=== PATIENT | male | born 1950 | race Caucasian/White ===

== ENCOUNTER → 2016-10-02 | Outpatient (CLI) | payer OTHER, MEDICARE | END | disposition home or self-care (01) | LOC: MRI 08:44 | DX: I61.9 Nontraumatic intracerebral hemorrhage, unspecified (principal) ==

== ENCOUNTER 2016-12-31 09:22 | Inpatient (IN) | payer MEDICARE ==
[~2016-12-31] VITALS: Ht 172.7 cm; Wt 84.1 kg
[~2016-12-31 09:22] MED LIST: PREDNISONE10 MG PO
[2016-12-31 09:36] VITALS: BP 166/116
[2016-12-31] MEDS ORDERED: CARVEDILOL25 MG PO (09:37)
[2016-12-31] MEDS ORDERED: LOSARTAN POTASS50 M1 PO (09:38)
[2016-12-31 10:22] LABS: BASO % 0.2 % (0.0-1.0); EOS % 0.3 % (1.0-4.0); HEMATOCRIT 40.4 % (42.0-52.0); HEMOGLOBIN 13.5 g/dl (14.0-18.0); LYMPH # 1.1 10*3/uL (1.3-4.4); MEAN CELL VOLUME 87.8 fl (80.0-94.0); MEAN CORPUSCULAR HGB 29.3 pg (27.0-31.0); MEAN CORPUSCULAR HGB CONC 33.4 g/dl (33.0-37.0); MEAN PLATELET VOLUME 10.1 fl (9.6-12.3); MONO # 0.4 10*3/uL (0.1-1.0); MONO % 7.1 % (3.0-9.0); NEUT # 4.2 10*3/uL (2.3-7.9); NEUT % 73.1 % (47.0-73.0); PLATELET COUNT AUTOMATED 133 10*3/uL (130-400); RED CELL DISTRI WIDTH 13.1 % (0-14.5); WHITE BLOOD COUNT 5.8 10*3/uL (4.8-10.8)
[2016-12-31 10:38] LABS: BUN 20 mg/dl (7-24); CARBON DIOXIDE 26 mmol/L (21-32); CHLORIDE 103 mmol/L (98-107); EST GLOM FILT AFRICAN AMERICAN > 60 ml/min; GLUCOSE 148 mg/dL (65-99); POTASSIUM 2.7 mmol/L (3.5-5.1); SODIUM 140 mmol/L (136-145); TROPONIN I 0.016 ng/ml (<0.045)
[2016-12-31 13:09] VITALS: BP 189/96
[2016-12-31 14:04] VITALS: BP 189/96
[2016-12-31 14:27] LABS: BILIRUBIN NEGATIVE (NEGATIVE); BLOOD TRACE-INTACT (NEGATIVE); CLARITY CLEAR (CLEAR); COLOR YELLOW (YELLOW); GLUCOSE NEGATIVE (NEGATIVE); KETONE NEGATIVE (NEGATIVE); LEUKO ESTERASE NEGATIVE (NEGATIVE); NITRITE NEGATIVE (NEGATIVE); PROTEIN NEGATIVE (NEGATIVE); SPECIFIC GRAVITY <= 1.005 (1.005-1.030)
[2016-12-31 14:46] LABS: BACTERIA TRACE; EPITHELIAL CELLS 0-2; RBC 0-2 rbc/hpf (0-2); URINE REFLEX COMMENT YES (NO)
[2016-12-31 16:00] VITALS: BP 180/94
[2016-12-31 18:19] LABS: CKMB 5.4 ng/ml (0.5-3.6)
[2016-12-31 20:00] VITALS: BP 137/89
[2017-01-01] VITALS: BP 184/86
[2017-01-01 00:57] LABS: CKMB 3.9 ng/ml (0.5-3.6)
[2017-01-01 06:09] LABS: EOS % 0.2 % (1.0-4.0); HEMATOCRIT 38.4 % (42.0-52.0); HEMOGLOBIN 12.9 g/dl (14.0-18.0); LYMPH # 0.9 10*3/uL (1.3-4.4); LYMPH % 17.5 % (27.0-41.0); MEAN CELL VOLUME 89.7 fl (80.0-94.0); MEAN CORPUSCULAR HGB 30.1 pg (27.0-31.0); MEAN CORPUSCULAR HGB CONC 33.6 g/dl (33.0-37.0); MEAN PLATELET VOLUME 9.7 fl (9.6-12.3); MONO # 0.5 10*3/uL (0.1-1.0); MONO % 8.5 % (3.0-9.0); NEUT # 3.9 10*3/uL (2.3-7.9); NEUT % 73.2 % (47.0-73.0); PLATELET COUNT AUTOMATED 126 10*3/uL (130-400); RED BLOOD COUNT 4.28 10*6/uL (4.50-5.90); RED CELL DISTRI WIDTH 13.1 % (0-14.5); WHITE BLOOD COUNT 5.3 10*3/uL (4.8-10.8)
[2017-01-01 06:21] LABS: CKMB 3.8 ng/ml (0.5-3.6)
[2017-01-01 06:34] LABS: HEMOGLOBIN A1c 6.1 % (4.8-5.6)
[2017-01-01 06:40] LABS: INTERNATIONAL NORM RATIO 1.1 (2.0-3.5); PROTHROMBIN TIME 11.2 SECONDS (9.0-12.4)
[2017-01-01 06:42] LABS: BUN 19 mg/dl (7-24); CARBON DIOXIDE 29 mmol/L (21-32); CHLORIDE 105 mmol/L (98-107); CHOLESTEROL 175 mg/dL (<200); EST GLOM FILT AFRICAN AMERICAN > 60 ml/min; FREE T4 1.03 ng/dl (0.76-1.46); GLUCOSE 96 mg/dL (65-99); HDL CHOLESTEROL 43 mg/dl (40-60); LDL CHOLESTEROL 116 mg/dL (9-159); MAGNESIUM 1.9 mg/dL (1.5-2.1); SODIUM 142 mmol/L (136-145); TRIGLYCERIDES 78 mg/dl (<150); VLDL CHOLESTEROL 16 mg/dL (6-40)
[2017-01-01 06:49] LABS: THYROID STIM HORMONE (HS) 0.691 uIU/ml (0.358-4.75)
[2017-01-01 06:51] LABS: POTASSIUM 4.6 mmol/L (3.5-5.1)
[2017-01-01 06:59] LABS: FOLIC ACID 9.39 ng/mL (>5.38); VITAMIN D, 25-HYDROXY 26.2 ng/mL (30-100)
[2017-01-01 08:00] VITALS: BP 190/110
[2017-01-01 10:30] VITALS: BP 154/84
[2017-01-01 12:13] VITALS: BP 160/88
[2017-01-01 16:00] VITALS: BP 145/74
[2017-01-01 20:00] VITALS: BP 167/91
[2017-01-02] VITALS: BP 156/77
[2017-01-02 08:00] VITALS: BP 180/98
[2017-01-02 12:00] VITALS: BP 122/80
[2017-01-02 16:00] VITALS: BP 126/78
[2017-01-02 20:00] VITALS: BP 157/82
[2017-01-03] VITALS: BP 157/88
[2017-01-03 08:00] VITALS: BP 176/86
[2017-01-03 12:00] VITALS: BP 148/96
[2017-01-03 16:00] VITALS: BP 168/98
[2017-01-03 20:00] VITALS: BP 153/90; BP 154/92
[2017-01-04] VITALS: BP 148/90; BP 159/94
[2017-01-04 04:00] VITALS: BP 148/82
[2017-01-04 08:00] VITALS: BP 154/84
[2017-01-04] MEDS ORDERED: CYCLOBENZAPRINE10 MG PO (11:19)
[2017-01-04 12:00] VITALS: BP 154/93
== END 2017-01-04 14:44 | disposition other institution (70) | DRG 552 ==
LOC: ED 09:22 → EDHOLD 11:41 → 5E 11:41
PROVIDERS: Emergency Medicine; Internal Medicine
DX: M54.5 Low back pain (principal); I10 Essential (primary) hypertension; R26.2 Difficulty in walking, not elsewhere classified; E87.6 Hypokalemia; W19.XXXA Unspecified fall, initial encounter; D64.9 Anemia, unspecified; R73.9 Hyperglycemia, unspecified; Z82.5 Family history of asthma and other chronic lower respiratory diseases; Z79.899 Other long term (current) drug therapy; Y93.89 Activity, other specified; Y92.89 Other specified places as the place of occurrence of the external cause; Y99.8 Other external cause status

== ENCOUNTER → 2017-01-19 | Outpatient (CLI) | payer MEDICARE ==
[~2017-01-19] MED LIST changes: +CARVEDILOL25 MG PO; +CYCLOBENZAPRINE10 MG PO; +LOSARTAN POTASS50 M1 PO
== END | disposition home or self-care (01) ==
LOC: MRI 01-18 11:00
DX: M51.26 Other intervertebral disc displacement, lumbar region (principal); M48.06 Spinal stenosis, lumbar region; M47.896 Other spondylosis, lumbar region; R53.1 Weakness

== ENCOUNTER 2020-10-31 10:07 | Inpatient (IN) | payer MEDICARE ==
[~2020-10-31] VITALS: Ht 170.1 cm; Wt 92.3 kg
[2020-10-31 10:31] VITALS: BP 172/97
[2020-10-31 12:20] LABS: BASO % 0.2 % (0.0-1.0); EOS # 0.1 10*3/uL (0.0-0.4); EOS % 2.1 % (1.0-4.0); HEMATOCRIT 41.3 % (42.0-52.0); LYMPH # 0.9 10*3/uL (1.3-4.4); LYMPH % 20.6 % (27.0-41.0); MEAN CELL VOLUME 91.6 fl (80.0-94.0); MEAN CORPUSCULAR HGB 29.5 pg (27.0-31.0); MEAN CORPUSCULAR HGB CONC 32.2 g/dl (33.0-37.0); MEAN PLATELET VOLUME 8.9 fl (9.6-12.3); MONO # 0.4 10*3/uL (0.1-1.0); MONO % 8.6 % (3.0-9.0); NEUT # 2.9 10*3/uL (2.3-7.9); NEUT % 67.3 % (47.0-73.0); PLATELET COUNT AUTOMATED 146 10*3/uL (130-400); RED BLOOD COUNT 4.51 10*6/uL (4.50-5.90); RED CELL DISTRI WIDTH 13.2 % (0-14.5); WHITE BLOOD COUNT 4.3 10*3/uL (4.8-10.8)
[2020-10-31 12:31] LABS: ACT PARTIAL THROMBO TIME 24.1 SECONDS (20.0-32.1); INTERNATIONAL NORM RATIO 1.1 (2.0-3.5)
[2020-10-31 12:37] LABS: BILIRUBIN Negative (Negative); BLOOD Negative (Negative); CLARITY Clear (Clear); COLOR Yellow (Yellow); GLUCOSE Negative (Negative); KETONE Negative (Negative); LEUKO ESTERASE Negative (Negative); NITRITE Negative (Negative); PH 5.5 (4.5-8.0)
[2020-10-31 12:40] LABS: ALBUMIN 3.6 gm/dl (3.1-4.5); BUN 18 mg/dl (7-24); CHLORIDE 107 mmol/L (98-107); CREATININE 0.63 mg/dL (0.70-1.30); POTASSIUM 3.9 mmol/L (3.5-5.1); SGOT/AST 37 IU/L (3-35); SGPT/ALT 41 U/L (12-78); SODIUM 140 mmol/L (136-145); TOTAL PROTEIN 8.8 gm/dL (6.4-8.2)
[2020-10-31 12:43] LABS: ALKALINE PHOSPHATASE 58 U/L (45-117); CPK 472 U/L (39-308); TROPONIN I < 0.015 ng/ml (<0.045)
[2020-10-31 12:52] LABS: EPITHELIAL CELLS 0-2; WBC 0-2 wbc/hpf (0-5)
[2020-10-31 12:53] LABS: BACTERIA TRACE
[2020-10-31 15:13] VITALS: BP 177/81
[2020-10-31 19:53] VITALS: BP 171/89
[2020-10-31 20:20] VITALS: BP 160/81
[2020-11-01] VITALS: BP 154/87
[2020-11-01 08:00] VITALS: BP 180/88
[2020-11-01] MEDS ORDERED: CARVEDILOL25 MG PO (08:15)
[2020-11-01] MEDS ORDERED: LOSARTAN POTASS50 M1 PO (08:15)
[2020-11-01] MEDS ORDERED: PREDNISONE5 MG PO (08:15)
[2020-11-01 12:00] VITALS: BP 183/98
[2020-11-01 16:00] VITALS: BP 167/85
== END 2020-11-01 22:03 | disposition short-term general hospital (02) | DRG 948 ==
LOC: ED 10:07 → EDHOLD 13:55 → 5E 13:55
PROVIDERS: Emergency Medicine; ADMIT Internal Medicine; ATTEND Internal Medicine
DX: R53.1 Weakness (principal); R26.89 Other abnormalities of gait and mobility; I10 Essential (primary) hypertension; Z83.6 Family history of other diseases of the respiratory system

== ENCOUNTER 2022-03-07 16:54 | Inpatient (IN) | payer MEDICARE ==
[~2022-03-07] VITALS: Ht 170.2 cm; Wt 84.9 kg
[~2022-03-07 16:54] MED LIST changes: +PREDNISONE5 MG PO
[2022-03-07 16:58] VITALS: BP 139/74
[2022-03-07 17:52] LABS: BASO % 0.2 % (0.0-1.0); EOS # 0.1 10*3/uL (0.0-0.4); EOS % 2.1 % (1.0-4.0); HEMATOCRIT 37.1 % (42.0-52.0); LYMPH # 0.9 10*3/uL (1.3-4.4); LYMPH % 20.5 % (27.0-41.0); MEAN CELL VOLUME 92.1 fl (80.0-94.0); MEAN CORPUSCULAR HGB 29.3 pg (27.0-31.0); MEAN CORPUSCULAR HGB CONC 31.8 g/dl (33.0-37.0); MEAN PLATELET VOLUME 9.3 fl (9.6-12.3); MONO # 0.5 10*3/uL (0.1-1.0); MONO % 10.3 % (3.0-9.0); NEUT # 2.9 10*3/uL (2.3-7.9); NEUT % 66.4 % (47.0-73.0); PLATELET COUNT AUTOMATED 138 10*3/uL (130-400); RED BLOOD COUNT 4.03 10*6/uL (4.50-5.90); RED CELL DISTRI WIDTH 13.4 % (0-14.5); WHITE BLOOD COUNT 4.4 10*3/uL (4.8-10.8)
[2022-03-07 18:09] LABS: ALKALINE PHOSPHATASE 45 U/L (45-117); BUN 24 mg/dl (7-24); CHLORIDE 110 mmol/L (98-107); CREATININE 0.51 mg/dL (0.70-1.30); LIPASE 192 U/L (73-393); POTASSIUM 4.2 mmol/L (3.5-5.1); SGOT/AST 31 IU/L (3-35); SGPT/ALT 29 U/L (12-78); SODIUM 140 mmol/L (136-145); TOTAL PROTEIN 8.1 gm/dL (6.4-8.2)
[2022-03-07 18:12] LABS: ACT PARTIAL THROMBO TIME 26.1 SECONDS (20.0-32.1); INTERNATIONAL NORM RATIO 1.1 (2.0-3.5)
[2022-03-07 19:50] LABS: BILIRUBIN Negative (Negative); BLOOD Negative (Negative); CLARITY Cloudy (Clear); COLOR Yellow (Yellow); GLUCOSE Negative (Negative); KETONE Negative (Negative); LEUKO ESTERASE Negative (Negative); NITRITE Negative (Negative); UROBILINOGEN 0.2 E.U./dl (0.0-1.0)
[2022-03-07 20:23] LABS: RBC 0-2 rbc/hpf (0-2); URIC ACID CRYSTALS 1+; WBC 0-2 wbc/hpf (0-5)
[2022-03-07 20:24] LABS: BACTERIA 1+; HYALINE CAST 0-2
[2022-03-08 03:28] VITALS: BP 122/86
[2022-03-08 06:55] VITALS: BP 137/90
[2022-03-08 08:00] VITALS: BP 143/77
[2022-03-08 15:00] VITALS: BP 143/74
[2022-03-08 16:00] VITALS: BP 150/68
[2022-03-08 22:00] VITALS: BP 131/74
[2022-03-09] VITALS: BP 127/74
[2022-03-09 07:15] LABS: BASO % 0.3 % (0.0-1.0); EOS # 0.1 10*3/uL (0.0-0.4); HEMATOCRIT 32.8 % (42.0-52.0); LYMPH # 0.8 10*3/uL (1.3-4.4); MEAN CELL VOLUME 90.9 fl (80.0-94.0); MEAN CORPUSCULAR HGB 29.1 pg (27.0-31.0); MEAN PLATELET VOLUME 9.2 fl (9.6-12.3); MONO # 0.4 10*3/uL (0.1-1.0); MONO % 10.1 % (3.0-9.0); NEUT # 2.3 10*3/uL (2.3-7.9); NEUT % 63.3 % (47.0-73.0); PLATELET COUNT AUTOMATED 118 10*3/uL (130-400); RED BLOOD COUNT 3.61 10*6/uL (4.50-5.90); RED CELL DISTRI WIDTH 13.2 % (0-14.5); WHITE BLOOD COUNT 3.7 10*3/uL (4.8-10.8)
[2022-03-09 07:30] LABS: CHLORIDE 110 mmol/L (98-107); CREATININE 0.49 mg/dL (0.70-1.30); POTASSIUM 3.6 mmol/L (3.5-5.1); SODIUM 142 mmol/L (136-145)
[2022-03-09 07:33] LABS: BUN 13 mg/dl (7-24)
[2022-03-09 08:00] VITALS: BP 153/74
[2022-03-09] MEDS ORDERED: AMOX-CLAV 875-1 EACH PO (10:40)
[2022-03-09 12:00] VITALS: BP 131/74
== END 2022-03-09 17:13 | disposition home or self-care (01) | DRG 603 ==
LOC: ED 16:54 → EDHOLD 19:07 → 4E 19:07 → EDHOLD 19:07 → 4E 03-08 14:15
PROVIDERS: Nurse Practitioner Family; ADMIT Internal Medicine; ATTEND Internal Medicine
DX: L03.116 Cellulitis of left lower limb (principal); I10 Essential (primary) hypertension; Z82.5 Family history of asthma and other chronic lower respiratory diseases; Z79.899 Other long term (current) drug therapy; E77.8 Other disorders of glycoprotein metabolism

== ENCOUNTER 2022-10-31 17:36 | Emergency (ER) | payer MEDICARE ==
[~2022-10-31 17:36] MED LIST changes: +AMOX-CLAV 875-1 EACH PO
[2022-10-31 19:10] LABS: BASO % 0.2 % (0.0-1.0); HEMATOCRIT 39.9 % (42.0-52.0); LYMPH # 0.5 10*3/uL (1.3-4.4); LYMPH % 7.3 % (27.0-41.0); MEAN CELL VOLUME 91.3 fl (80.0-94.0); MEAN CORPUSCULAR HGB 30.2 pg (27.0-31.0); MEAN CORPUSCULAR HGB CONC 33.1 g/dl (33.0-37.0); MEAN PLATELET VOLUME 9.7 fl (9.6-12.3); MONO # 0.4 10*3/uL (0.1-1.0); MONO % 6.7 % (3.0-9.0); NEUT # 5.3 10*3/uL (2.3-7.9); NEUT % 85.3 % (47.0-73.0); PLATELET COUNT AUTOMATED 101 10*3/uL (130-400); RED BLOOD COUNT 4.37 10*6/uL (4.50-5.90); RED CELL DISTRI WIDTH 13.3 % (0-14.5); WHITE BLOOD COUNT 6.3 10*3/uL (4.8-10.8)
[2022-10-31 19:36] LABS: BUN 14 mg/dl (9-23); CHLORIDE 105 mmol/L (98-107); CPK 363 U/L (34-171); POTASSIUM 3.8 mmol/L (3.4-5.1)
[2022-10-31] MEDS ORDERED: NAPROXEN250 MG PO (20:20)
== END 2022-10-31 20:35 | disposition home or self-care (01) ==
LOC: ED 17:36
PROVIDERS: Internal Medicine
DX: S16.1XXA Strain of muscle, fascia and tendon at neck level, initial encounter (principal); S00.83XA Contusion of other part of head, initial encounter; M54.50 Low back pain, unspecified; Z98.890 Other specified postprocedural states; W18.39XA Other fall on same level, initial encounter; Y93.89 Activity, other specified; Y92.89 Other specified places as the place of occurrence of the external cause; Y99.8 Other external cause status

== ENCOUNTER 2024-07-16 07:59 | Emergency (ER) | payer MEDICARE ==
[~2024-07-16] VITALS: Ht 167.6 cm; Wt 83.9 kg
[~2024-07-16 07:59] MED LIST changes: +DOXYCYCLINE HY100 M3 PO; +DUTASTERIDE0.5 MG PO; +FUROSEMIDE20 M1 PO; +NAPROXEN250 MG PO; +PHARMASSURE FO0.4 MG PO; +TAMSULOSIN HCL0.4 MG PO; +VITAMIN D325 MCG PO
[2024-07-16] MEDS ORDERED: SODIUM CHLORIDE 0.9% 1,000 ML IV ONE (08:05)
[2024-07-16 08:49] LABS: EOS % 0.2 % (1.0-4.0); MEAN CELL VOLUME 94.2 fl (80.0-94.0); MEAN CORPUSCULAR HGB 29.7 pg (27.0-31.0); MEAN CORPUSCULAR HGB CONC 31.5 g/dl (33.0-37.0); MEAN PLATELET VOLUME 9.7 fl (9.6-12.3); MONO # 0.4 10*3/uL (0.1-1.0); MONO % 9.5 % (3.0-9.0); NEUT # 3.3 10*3/uL (2.3-7.9); NEUT % 78.2 % (47.0-73.0); PLATELET COUNT AUTOMATED 102 10*3/uL (130-400); RED BLOOD COUNT 4.14 10*6/uL (4.50-5.90); RED CELL DISTRI WIDTH 14.1 % (0-14.5); WHITE BLOOD COUNT 4.2 10*3/uL (4.8-10.8)
[2024-07-16 09:10] LABS: BUN 15 mg/dl (9-23); CHLORIDE 104 mmol/L (98-107); CPK 112 U/L (34-171); POTASSIUM 4.4 mmol/L (3.4-5.1)
[2024-07-16 10:46] LABS: BILIRUBIN Negative (Negative); BLOOD Negative (Negative); CLARITY Clear (Clear); COLOR Yellow (Yellow); GLUCOSE Negative (Negative); KETONE Trace (Negative); LEUKO ESTERASE Negative (Negative); NITRITE Negative (Negative); UROBILINOGEN 0.2 E.U./dl (0.0-1.0)
[2024-07-16 10:57] LABS: BACTERIA 2+; MUCOUS 2+
== END 2024-07-16 12:52 | disposition home or self-care (01) ==
LOC: ED 07:59
PROVIDERS: Emergency Medicine
DX: R53.1 Weakness (principal); I10 Essential (primary) hypertension; Z98.890 Other specified postprocedural states